=== PATIENT | male | born 1985 ===

== ENCOUNTER 2021-02-04 07:48 | Emergency (ER) | payer SELFPAY ==
[2021-02-04 08:49] LABS: Hematocrit 44.7 % (35.5-45.6); Hemoglobin 15.5 gm/dl (11.8-15.2); Mean Corpuscular HGB Conc 35 % (32-34); Mean Corpuscular Volume 90 fl (84-94); Platelet Count 211 K/mm3 (140-440); Red Blood Count 4.99 M/mm3 (3.65-5.03); Red Cell Distribution Width 13.2 % (13.2-15.2)
[2021-02-04 09:04] LABS: Alanine Aminotransferase 26 units/L (7-56); Albumin 4.5 g/dL (3.9-5); BUN/Creatinine Ratio 12; Blood Urea Nitrogen 13 mg/dL (9-20); Hemolysis Index 18
[2021-02-04] MEDS ORDERED: SODIUM CHLORIDE 0.9% 1000 ML 1,000 ML IV ONE (09:08)
[2021-02-04] MEDS ORDERED: ONDANSETRON 4 MG/2 ML INJ IV ONE (09:08)
[2021-02-04] MEDS ORDERED: KETOROLAC 30 MG/1 ML INJ IV ONE (09:08)
--- NOTE | 2021-02-04 09:09 | Emergency Department Report ---
ED N/V/D HPI - General Chief complaint: Abdominal Pain Stated complaint: COVID SYMPTOMS Time Seen by Provider: 02/04/21 08:56 Source: patient Mode of arrival: Ambulatory Limitations: No Limitations - History of Present Illness Initial comments: 35-year-old male who reports no significant past medical history presents to the ER today with complaints of nausea, vomiting and diarrhea. Patient states that his symptoms initially started with him not feeling well 4 days ago. He states that he was having fever, highest measured temperature was 101, chills and then started with diarrhea. Patient states that he has continued to have diarrhea since. He has been having on average about 6 episodes per day. So far this morning he has been having 3 episodes. He states that his stool has been watery without any mucus or blood. He states that he started vomiting last night. Since last night he has vomited about 4 times and emesis is mainly liquid, no coffee-ground emesis or hematochezia. He reports associated intermittent epigastric pain which he describes as cramping/sharp. He reports nasal congestion but denies any other URI symptoms or cough, chest pain or shortness of breath. He states that yesterday he took an emergency and Sudafed with that did not help him symptoms. He denies any apparent ill contacts or recent travel. He denies any recent abx use. He denies any bad food intake. He denies any history of abdominal surgeries. He states he drinks socially. He does smoke tobacco. He denies any illicit drug use. He states that he does have an outpatient COVID-19 test scheduled for tomorrow. MD complaint: nausea, vomiting, diarrhea, abdominal pain -: days(s) (4) - Related Data Previous Rx's Medication Instructions Recorded Last Taken Type Promethazine [Phenergan] 25 mg PO Q6HR PRN #14 tab 02/04/21 Unknown Rx RX: Ciprofloxacin HCl 500 mg PO Q12HR #14 tablet 02/04/21 Unknown Rx metroNIDAZOLE [Flagyl] 500 mg PO Q12HR #14 tab 02/04/21 Unknown Rx traMADoL [Ultram] 50 mg PO Q6HR PRN #12 tablet 02/04/21 Unknown Rx Allergies Allergy/AdvReac Type Severity Reaction Status Date / Time No Known Allergies Allergy Unverified 02/04/21 07:57 ED Review of Systems ROS: Stated complaint: COVID SYMPTOMS Other details as noted in HPI Comment: All other systems reviewed and negative Constitutional: chills, fever ENT: congestion Respiratory: denies: cough, shortness of breath, SOB with exertion, SOB at rest, wheezing Cardiovascular: denies: chest pain, palpitations Gastrointestinal: abdominal pain, nausea, vomiting, diarrhea. denies: constipation, hematemesis, melena, hematochezia Genitourinary: denies: urgency, dysuria, frequency, hematuria, discharge, testicular pain, testicular mass Musculoskeletal: denies: back pain, joint swelling, arthralgia Skin: denies: rash, lesions, change in color, change in hair/nails, pruritus Neurological: denies: headache, weakness, numbness, paresthesias, confusion, abnormal gait, vertigo Psychiatric: denies: anxiety, depression, auditory hallucinations, visual hallucinations, homicidal thoughts, suicidal thoughts Hematological/Lymphatic: denies: easy bleeding, easy bruising, swollen glands ED Past Medical Hx - Past Medical History Previous Medical History?: No - Surgical History Additional Surgical History: EYE - Social History Smoking Status: Current Every Day Smoker Substance Use Type: None - Medications Home Medications: Home Medications Medication Instructions Recorded Confirmed Last Taken Type Promethazine [Phenergan] 25 mg PO Q6HR PRN #14 tab 02/04/21 Unknown Rx RX: Ciprofloxacin HCl 500 mg PO Q12HR #14 tablet 02/04/21 Unknown Rx metroNIDAZOLE [Flagyl] 500 mg PO Q12HR #14 tab 02/04/21 Unknown Rx traMADoL [Ultram] 50 mg PO Q6HR PRN #12 tablet 02/04/21 Unknown Rx ED Physical Exam - General Limitations: No Limitations General appearance: alert, in no apparent distress - Head Head exam: Present: atraumatic, normocephalic, normal inspection - Eye Eye exam: Present: normal appearance, PERRL, EOMI Pupils: Present: normal accommodation - ENT ENT exam: Present: normal exam, mucous membranes moist - Neck Neck exam: Present: normal inspection, full ROM. Absent: meningismus - Respiratory Respiratory exam: Present: normal lung sounds bilaterally. Absent: respiratory distress, wheezes, rales, rhonchi - Cardiovascular Cardiovascular Exam: Present: regular rate, normal rhythm, normal heart sounds - GI/Abdominal GI/Abdominal exam: Present: soft, tenderness (TTP epigastric, left upper and left lower quadrant), guarding (mild guarding on palpation to the epigastric and left upper quadrant area). Absent: distended, rebound, rigid - Neurological Exam Neurological exam: Present: alert, oriented X3, CN II-XII intact, normal gait - Psychiatric Psychiatric exam: Present: normal affect, normal mood - Skin Skin exam: Present: intact ED Course Vital Signs 02/04/21 08:03 Temperature 99.1 F Pulse Rate 92 H Respiratory 22 Rate Blood Pressure 147/98 O2 Sat by Pulse 100 Oximetry ED Medical Decision Making - Lab Data Result diagrams: 02/04/21 08:26 02/04/21 08:26 - Radiology Data Radiology results: report reviewed Patient: GRETCHEN CRUZ MR#: [id number] : 1985 Acct:[id number] Age/Sex: 35 / M ADM Date: 02/04/21 Loc: ED Attending Dr: Ordering Physician: MITCHELL AREVALO Date of Service: 02/04/21 Procedure(s): CT abdomen pelvis w con Accession Number(s): [id number] cc: MITCHELL AREVALO CT ABDOMEN AND PELVIS WITH CONTRAST HISTORY: epigastric/Left sided abd pain/diarrhea OMNIPAQUE 300 100ML. COMPARISON: None. TECHNIQUE: CT images of the abdomen and pelvis were obtained following admini stration of intravenous contrast. All CT scans at this location are performed using CT dose reduction for ALARA by means of automated exposure control. CONTRAST: 100 ml of intravenous contrast administered. FINDINGS: Lungs/bones: Lung bases are clear. Adrenal glands, pancreas, spleen and upper GI tract appear normal. Liver appears normal. Bilateral kidneys are unremarkable. Bowel loops appear normal. There is questionable thickening of the left colon and into the sigmoid colon. There is also incomplete distention. No significant inflammatory change. Appendix appears normal. There may be some questionable thickening of the talus: Ascending colon as well. No free fluid in the abdomen or pelvis. No acute bone findings are identified. Abdomen/pelvis: IMPRESSION: There is questionable thickening throughout the colon. No significant inflammatory changes seen. Findings could represent mild diffuse colitis however the thickening may be secondary to incomplete distention of the colon. No bowel obstruction is seen. Clinical correlation. Signer Name: Tristan Walsh MD Signed: 02/04/2021 9:48 AM Workstation Name: [id number] Transcribed By: THOMAS Dictated By: TRISTEN WALSH MD Electronically Authenticated By: TRISTEN WALSH MD Signed Date/Time: 02/04/21947 DD/ 4 TD/TT: Patient: GRETCHEN CRUZ MR#: [id number] : 1985 Acct:[id number] Age/Sex: 35 / M ADM Date: 02/04/21 Loc: ED Attending Dr: Ordering Physician: MITCHELL AREVALO Date of Service: 02/04/21 Procedure(s): XR chest routine 2V Accession Number(s): [id number] cc: MITCHELL AREVALO Fluoro Time In Minutes: CHEST 2 VIEWS INDICATION / CLINICAL INFORMATION: fever. COMPARISON: None available. FINDINGS: SUPPORT DEVICES: None. HEART / MEDIASTINUM: No significant abnormality. LUNGS / PLEURA: No significant pulmonary or pleural abnormality. No pneumothorax. ADDITIONAL FINDINGS: No significant additional findings. IMPRESSION: 1. No acute findings. Signer Name: Tristan Walsh MD Signed: 02/04/2021 9:42 AM Workstation Name: [id number] Transcribed By: THOMAS Dictated By: TRISTEN WALSH MD Electronically Authenticated By: TRISTEN WALSH MD Signed Date/Time: 02/04/21941 DD/ 1 TD/TT: - Medical Decision Making DDX: Pancreatitis, acute cholecystitis, gastroenteritis, diverticulitis, colitis, atypical pneumonia 1054: labs reviewed - CBC unremarkable. CMP shows mild hypokalemia with a potassium of 3.3 but otherwise unremarkable. Urinalysis normal. Lipase negative. CT abdomen pelvis shows mild colitis but otherwise no other acute abnormalities. Chest x-ray shows nothing acute. Patient currently resting comfortably. He is Not currently in any distress. No vomiting or diarrhea during stay. Reports feeling a little better after meds, and is currently getting IV fluids. Discussed lab and CT results with patient. Patient will be started on antibiotics as a precaution for bacterial colitis. Patient informed to follow-up closely with his primary care doctor and a GI specialist especially if his symptoms persist. Critical care attestation.: If time is entered above; I have spent that time in minutes in the direct care of this critically ill patient, excluding procedure time. ED Disposition Clinical Impression: Colitis Disposition: DC- TO HOME OR SELFCARE Is pt being admited?: No Does the pt Need Aspirin: No Condition: Stable Instructions: Colitis, [place] Diet Additional Instructions: I recommend that you take the cipro and flagyl as prescribed. Take the zofran, and the ultram as prescribed to help with pain and nausea. Drink lots of fluids. Follow the bland diet listed on d/c instructions today. Follow-up closely with your primary care doctor listed on your discharge instructions. Return to the ER if your symptoms changes or worsens in any way. Prescriptions: RX: Ciprofloxacin HCl 500 mg PO Q12HR #14 tablet metroNIDAZOLE [Flagyl] 500 mg PO Q12HR #14 tab Promethazine [Phenergan] 25 mg PO Q6HR PRN #14 tab PRN Reason: Nausea traMADoL [Ultram] 50 mg PO Q6HR PRN #12 tablet PRN Reason: Pain Referrals: [facility] [Provider Group] - 3-5 Days SANDRO FRASER MD [Staff Physician] - 3-5 Days Forms: Work/School Release Form(ED) Time of Disposition: 10:46
--- NOTE | 2021-02-04 09:46 | XRay Report ---
CHEST 2 VIEWS INDICATION / CLINICAL INFORMATION: fever. COMPARISON: None available. FINDINGS: SUPPORT DEVICES: None. HEART / MEDIASTINUM: No significant abnormality. LUNGS / PLEURA: No significant pulmonary or pleural abnormality. No pneumothorax. ADDITIONAL FINDINGS: No significant additional findings. IMPRESSION: 1. No acute findings. Signer Name: Tristan Walsh MD Signed: 02/04/2021 9:42 AM Workstation Name: [id number]
[2021-02-04 09:51] LABS: Bilirubin,Urine NEG (Negative); Blood,Urine NEG (Negative); Protein,Urine <15 mg/dL mg/dL (Negative); Urobilinogen,Urine < 2.0 mg/dL (<2.0)
[2021-02-04 09:52] LABS: RBC,Urine < 1.0 /HPF (0.0-6.0); WBC,Urine < 1.0 /HPF (0.0-6.0)
--- NOTE | 2021-02-04 09:52 | Cat Scan Report ---
CT ABDOMEN AND PELVIS WITH CONTRAST HISTORY: epigastric/Left sided abd pain/diarrhea OMNIPAQUE 300 100ML. COMPARISON: None. TECHNIQUE: CT images of the abdomen and pelvis were obtained following administration of intravenous contrast. All CT scans at this location are performed using CT dose reduction for ALARA by means of automated exposure control. CONTRAST: 100 ml of intravenous contrast administered. FINDINGS: Lungs/bones: Lung bases are clear. Adrenal glands, pancreas, spleen and upper GI tract appear normal . Liver appears normal. Bilateral kidneys are unremarkable. Bowel loops appear normal. There is quest ionable thickening of the left colon and into the sigmoid colon. There is also incomplete distention. No significant inflammatory change. Appendix appears normal. There may be some questionable thickeni ng of the talus: Ascending colon as well. No free fluid in the abdomen or pelvis. No acute bone findings are identified. Abdomen/pelvis: IMPRESSION: There is questionable thickening throughout the colon. No significant inflammatory changes seen. Find ings could represent mild diffuse colitis however the thickening may be secondary to incomplete diste ntion of the colon. No bowel obstruction is seen. Clinical correlation. Signer Name: Tristan Walsh MD Signed: 02/04/2021 9:48 AM Workstation Name: [id number]
[2021-02-04 09:53] LABS: Color,Urine Yellow (Yellow)
[2021-02-04 11:53] VITALS: BP 140/72
[2021-02-04 14:24] LABS: Total Cells Counted 100
[2021-02-04 14:25] LABS: Platelet Estimate Consistent w Auto; RBC Morphology Normal
== END 2021-02-04 11:54 | disposition home or self-care (01) ==
LOC: ED 07:48
DX: K52.9 Noninfective gastroenteritis and colitis, unspecified (principal); F17.200 Nicotine dependence, unspecified, uncomplicated; Z79.899 Other long term (current) drug therapy
CPT/HCPCS: 36415; 71046; 74177; 80053; 81001; 83690; 83735; 85007; 85025; 96361; 96374; 96375; 99284; J1885; J2405; J7030; Q9967